=== PATIENT | female | born 1960 | race Caucasian/White ===

== ENCOUNTER 2018-03-02 12:19 | Inpatient (IN) | payer BC, OTHER ==
[~2018-03-02] VITALS: Ht 167.6 cm; Wt 77.1 kg
--- NOTE | 2018-03-02 13:00 | NUR ---
Pre-admission Note Received pt at intake. Pt is a 58 y/o F being [facility] Pt exhibits glossy red eyes, black and blue bruising that is clearing up around the eyes and nose, nose is swollen and has a scab/lesion right under L nostril - pt states this is all due to a fall from having a SZ unrelated to w/d last week tu. Pt has a flat affect, depressive mood, higher emotional amplitude, tearful at times when speaking, exhibiting feelings of remorse, presents agitation, anxiety, restlessness, and pt states she feels "tense, bothered and overwhelmed." Pt is the primary source of info, has a slow verbal response and low tone of voice. Pt is a poor historian, has difficulty thinking and concentrating. PMH of anxiety, depression, total hysterectomy, bladder repair surgery d/t complication from hysterectomy, GERD. Pt reports having sporadic seizures unrelated to ETOH withdrawal since in her 20's. Pt reports she had a seizure last week while cleaning in her home; states she cannot recall her memory before the seizure, son found her on the floor covered in blood from her nose. Pt states she has not been seen by the doctor in fear of judgement of her drinking. 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 Pt states, "I wanted attention and took some small red pills, I don't remember what but I took a bunch of them and cut my wrists. It was only superficially." PCP is Dr. Givens in [place]. Pt reports having been to multiple treatment centers, never have completed treatment, always leaving early within 5 days of admission. Denies smoking. Initial VS are BP: 131/85, HR: 96, RR: 16, O2sat: 96% Substance Use Hx: 1. ETOH - 96 oz (4 x 24 oz can) of beer daily x 6 month. Last used today 03/02/18, at 1030. Pt states, "I never stay sober but I have periods were I try to not drink and it would last typically last 1 to 2 days." FIrst used at 37 y/o after first divorce. Got involved with a bad bf that drank and progressed. First started becoming a problem in 1999. Longest sobriety is 60 days in 2013. Pt reports she used to drink 8-12 x 12 oz beer daily for 15- 20 cans of 12 oz beer years prior and 16+ prior for 10 years.
[2018-03-02] MEDS ORDERED: SOY1TABL2 PO (13:16)
[2018-03-02] MEDS ORDERED: PARO10TA86 PO (13:16)
[2018-03-02] MEDS ORDERED: CLOT15CR5 TP (13:16)
[2018-03-02] MEDS ORDERED: METRONIDAZOLE (13:16)
[2018-03-02] MEDS ORDERED: OMEP40CA37 PO (13:16)
[2018-03-02] MEDS ORDERED: NEOM28OI2 TP (13:16)
[2018-03-02] MEDS ORDERED: THIAMINE HCL 200 MG/2 ML VIAL IM ONE (13:45)
[2018-03-02] MEDS ORDERED: ONDANSETRON ODT 4 MG TAB.RAPDIS SL PRN (13:45)
[2018-03-02] MEDS ORDERED: MIRALAX 17 GM POWD.PACK PO PRN (13:45)
[2018-03-02] MEDS ORDERED: LORAZEPAM 1 MG TABLET PO PRN ×2 (13:45)
[2018-03-02] MEDS ORDERED: MAGNESIUM HYDROXIDE 30 ML LIQUID UDC PO PRN (13:45)
[2018-03-02] MEDS ORDERED: LORAZEPAM 2 MG/1 ML VIAL IM PRN (13:45)
[2018-03-02] MEDS ORDERED: MAG HYDROX/AL HYDROX/SIMETH 30 ML LIQUID UDC PO PRN (13:45)
[2018-03-02] MEDS ORDERED: LOPERAMIDE HCL 2 MG CAPSULE PO PRN ×2 (13:45)
[2018-03-02] MEDS: FOLIC ACID 1 MG TABLET PO SCH (14:04)
[2018-03-02] MEDS: MULTIVITAMINS,THERAPEUTIC TABLET PO SCH (14:04)
[2018-03-02 14:05] LABS: *URINE HCG, QUAL NEGATIVE (NEGATIVE)
[2018-03-02 14:31] LABS: BASOPHILS # (AUTO) 0.1 K/uL (0.0-8.0); BASOPHILS % (AUTO) 1.3 % (0.0-2.0); EOSINOPHILS # (AUTO) 0.2 K/uL (0.0-0.7); EOSINOPHILS % (AUTO) 2.9 % (0.0-7.0); HEMATOCRIT 39.1 % (31.2-41.9); HEMOGLOBIN 13.4 g/dL (10.9-14.3); LYMPHOCYTES # (AUTO) 1.7 K/uL (20.0-40.0); LYMPHOCYTES % (AUTO) 29.2 % (20.5-51.5); MEAN CORPUSCULAR HEMOGLOBIN 36.4 uug (24.7-32.8); MEAN CORPUSCULAR HGB CONC 34 g/dL (32.3-35.6); MONOCYTES # (AUTO) 0.8 K/uL (2.0-10.0); NEUTROPHILS # (AUTO) 3.1 K/uL (1.8-8.9); NEUTROPHILS % (AUTO) 52.6 % (38.5-71.5); PLATELET COUNT (AUTO) 120 K/uL (179-408); RED BLOOD CELL COUNT(AUTO) 3.69 MIL/uL (3.63-4.92)
[2018-03-02 14:44] LABS: BILIRUBIN,TOTAL 0.8 mg/dL (0.2-1.0); CREATININE 0.5 mg/dL (0.6-1.3); MAGNESIUM 1.6 mg/dL (1.8-2.4); POTASSIUM 4.4 mmol/L (3.5-5.1); TOTAL PROTEIN, SERUM 7.7 g/dL (6.4-8.2)
[2018-03-02 14:54] LABS: THYROID STIMULATING HORMONE 1.411 mIU/mL (0.358-3.740)
[2018-03-02 16:30] VITALS: BP 103/61
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
--- NOTE | 2018-03-02 19:40 | NUR ---
End Of Shift Pt has been laying in bed mostly throughout shift since being admitted. Pt states she feels anxious about what to anticipate and wants to know how long she needs to be here. CIWA or tapers have not been started or ordered. Pt ate 100% of meals. No prns given. Safety measures in place. Endorsement given to car shifter nurse.
[2018-03-02 20:00] VITALS: BP 103/58
--- NOTE | 2018-03-02 20:00 | NUR ---
Start of Shift Patient on bed, noted to be depressed, melancholic and isolative. Patient appears not motivated to communicate, answering mostly with yes and no and with no eye contact. Patient verbalized experiencing intermittent chills, feeling anxious, fatigue, easily agitated and with tremors noted. Patient noted to be flushed, disheveled and unkempt, with body odor. Encouraged patient to take a shower. Patient stated that she will take a shower tomorrow. Fall, universal, seizure and safety prec in place. Call light within reach. Latest CIWA=17. Will continue to monitor.
[2018-03-02] MEDS ORDERED: MAGNESIUM OXIDE 400 MG TABLET PO ONE ×3 (20:45→21:00)
[2018-03-02] MEDS ORDERED: MAGNESIUM OXIDE 400 MG TABLET ONE (21:35)
--- NOTE | 2018-03-02 21:38 | NUR ---
PRN Ativan Patient is tremulous, jittery and with tremors. Patient also c/o feeling anxious and with dark undereye circles. CIWA=17. Administered Ativan 2 mg PO PRN as ordered. Will reassess.
--- NOTE | 2018-03-02 22:45 | NUR ---
Ativan PRN reassess Patient appears less anxious, with tremors less prominent. Patient also is less tremulous, verbalized, "I feel a little better with the medication." CIWA=11.
[2018-03-03] VITALS: BP 108/67
--- NOTE | 2018-03-03 | NUR ---
CIWA 11 Patient presents with intermittent chills, tremors, anxiety and with intermittent nausea. Patient stated that she has mild sensitivity to light. Will continue to monitor.
[2018-03-03 04:00] VITALS: BP 112/65
--- NOTE | 2018-03-03 04:00 | NUR ---
CIWA 12 Patient with continuous intermittent chills, anxiety, tremors and verbalized being sensitive to light. With dizziness reported. Will continue monitor.
[2018-03-03 07:10] LABS: BILIRUBIN,DIRECT 0.4 mg/dL (0.0-0.2); BILIRUBIN,TOTAL 1.2 mg/dL (0.2-1.0); MAGNESIUM 1.6 mg/dL (1.8-2.4)
--- NOTE | 2018-03-03 07:16 | NUR ---
End of Shift Patient continues to be depressed, melancholic and isolative. Patient verbalized that she still experiences intermittent chills, feeling anxious, fatigue, easily agitated and with tremors noted. Patient noted to be flushed, disheveled and unkempt, with body odor. Patient stated that she will take a shower this morning. Fall, universal, seizure and safety prec in place. Call light within reach. Latest CIWA=12, slept for 7 hours. Endorsed to AM shift nurse for continuity of care.
--- NOTE | 2018-03-03 07:55 | NUR ---
Start Of Shift / CIWA 12 Pt is a 58 y/o F admitted yesterday 03/03/18 for medically supervised ETOH withdrawal. Pt is placed on a 5 day Ativan taper that will starting this morning. Received pt laying in bed w. a disheveled appearance, a depressive mood and a flat affect. Pt presents anxiety, gross tremors, nausea, alternating extremes of feeling cold and hot, sweating, fatigue, lethargy, agitation, easily irritable and restlessness. Encouraged pt to increase fluids as tolerated to facilitate in detox. Educated pt on s/s to report and pt verbalized understanding. Side rails upx2 and padded, bed is in low position, call light within reach. Safety measures in place. Will continue to monitor.
[2018-03-03 08:00] VITALS: BP 126/68
[2018-03-03 08:06] LABS: HEPATITIS B SURFACE AG Negative (Negative)
[2018-03-03] MEDS: LORAZEPAM 1 MG TABLET PO SCH ×4 (08:57→21:21)
[2018-03-03] MEDS: FOLIC ACID 1 MG TABLET PO SCH (08:58)
[2018-03-03] MEDS: PANTOPRAZOLE SODIUM 40 MG TABLET.DR PO SCH (08:58)
[2018-03-03] MEDS: MULTIVITAMINS,THERAPEUTIC TABLET PO SCH (08:58)
[2018-03-03] MEDS: THIAMINE HCL 100 MG TABLET PO SCH (08:58)
[2018-03-03] MEDS ORDERED: LORAZEPAM 1 MG TABLET ONE ×3 (09:00→16:29)
[2018-03-03] MEDS ORDERED: 5 DAY TAPER OF LORAZEPAM -SERENITY PROTOCOL PO PRN (09:00)
[2018-03-03] MEDS ORDERED: TUBERCULIN,PURIF.PROT.DERIV. 5 TU/0.1 ML TEST ID ONE (09:00)
[2018-03-03] MEDS ORDERED: Medication Not On Formulary EA (Omeprazole 40 MG) PO SCH (09:00)
[2018-03-03] MEDS ORDERED: PANTOPRAZOLE SODIUM 40 MG TABLET.DR PO ONE (09:01)
[2018-03-03] MEDS: PAROXETINE HCL 10 MG TABLET PO SCH (10:37)
--- NOTE | 2018-03-03 12:30 | NUR ---
CIWA 16 Pt is laying in bed sleeping intermittently and states that she is feeling very tired. Pt presents gross tremors, nausea, anxiety and agitation, alternating extremes of feeling cold and hot, sweating, fatigue, lethargy, easily irritable and restlessness. Ativan 2 mg will be administered. Safety measures in place.
[2018-03-03 12:32] VITALS: BP 136/81
[2018-03-03 12:43] LABS: *AMPHETAMINE, URINE NEGATIVE (NEGATIVE); *BARBITURATE, URINE NEGATIVE (NEGATIVE); *CANNABINOID, URINE NEGATIVE (NEGATIVE); *COCCAINE, URINE NEGATIVE (NEGATIVE); *OPIATE, URINE NEGATIVE (NEGATIVE); *PHENCYCLIDINE SCREEN,URINE NEGATIVE (NEGATIVE)
[2018-03-03] MEDS ORDERED: MAGNESIUM OXIDE 400 MG TABLET PO ONE (14:30)
--- NOTE | 2018-03-03 14:54 | NUR ---
Therapist prompted client to attend group therapy.
[2018-03-03] MEDS ORDERED: MAGNESIUM OXIDE 400 MG TABLET ONE (14:57)
--- NOTE | 2018-03-03 15:00 | NUR ---
Mag-Ox 400 mg po x1 given for Mg+ 1.6. Slo-mag will be started tomorrow.
--- NOTE | 2018-03-03 16:02 | NUR ---
CIWA 18 Pt has been isolative in room, speaks in a very low tone, soft voice, is hypoactive. Pt presents nausea, lethargy, fatigue, anxious, is grossly tremulous, agitated, restless, have sensitivity to the light. Ativan 2 mg po will be administered. Encouraged pt to verbalize feelings about situation and to increase fluids as tolerated. Safety measures in place.
[2018-03-03 16:30] VITALS: BP 148/95
--- NOTE | 2018-03-03 16:38 | NUR ---
STK-MEDs in eMAR documented as non-admin d/t pyxis communication error
--- NOTE | 2018-03-03 18:54 | NUR ---
START OF SHIFT NOTE: This report is on patient, 58 years old female, admitted yesterday for Alcohol withdrawal. The patient tolerated well with ordered 5 day Ativan taper, that started today. Withdrawal symptoms will be closely monitoring. Patient remains compliant with treatment, medications, and diet regimen. Patient is alert and oriented x4, cooperative, with stable gait, clear soft speech. Patient reports NKA, is on Full Code, Regular diet, Fall and Seizures precautions. Patient report history of seizures r/t withdrawal from alcohol, the most recent seizure was on 02/23/2018. Latest CIWA= 18 at 1600. Patient presented with moderate withdrawal symptoms such as anxiety, agitation, irritability, headache, mild nausea/w no vomiting, nervousness, moderate tremors, restlessness, and fatigue. No PRN medications was administered during day shift, per day shift nurse report. Patient was encouraged to fluids intake as tolerated, and to attend groups activities. Safe and calm environment provided. All needs met. Safety measures in place: Call light within reach, bed locked in lowest position, padded bed rails up bilaterally. Endorsed by day shift nurse. Report received. Will be monitoring closely.
--- NOTE | 2018-03-03 18:54 | NUR ---
End Of Shift Pt has been isolative in room, speaks in a very low tone and soft voice, is hypoactive. Pt has increasing amplitude of withdrawal symptom, gross tremors, anxiety, nausea, lethargy, fatigue, agitation, restlessness, sweating, feeling cold/hot sensations, have sensitivity to the light and decreased appetite. Last CIWA 18. No prns given. Mag-ox given and slow-mag will start tomorrow. Pt refused PPD test; states she gets a positive result w/ redness at site but CXR is neg. BP elevated; last bp: 148/95 HR: 74. Encouraged pt to verbalize feelings about situation and to increase fluids as tolerated. Safety measures in place.
[2018-03-03 20:00] VITALS: BP 122/74
--- NOTE | 2018-03-03 20:00 | NUR ---
CIWA ASSESSMENT CIWA=14 at 2000. The patient experienced moderate withdrawal symptoms such as anxiety, agitation, irritability, headache, nervousness, tremors, restlessness, and fatigue. Scheduled medications will be administrated as ordered. Encouraged to intake fluids as tolerated. Safe and calm environment provided. All needs met. Safety measures: Call light within reach, bed locked in lowest position, padded bed rails up x2. Will continue to monitor closely.
[2018-03-04] VITALS (8 sets, daily range): BP systolic 119–148; BP diastolic 49–91
--- NOTE | 2018-03-04 | NUR ---
CIWA ASSESSMENT CIWA=12 at 0000. The patient presented with anxiety, agitation, irritability, nervousness, sweating, flashed skin, clammy skin, tremors, restlessness, and fatigue. Encouraged to intake fluids as tolerated. Safe and calm environment provided. All needs met. Safety measures: Call light within reach, bed locked in lowest position, padded bed rails up x2. Will continue to monitor closely.
--- NOTE | 2018-03-04 04:00 | NUR ---
CIWA ASSESSMENT CIWA=10 at 0400. The patient appears sad and worried. Mood anxious and flat affect. The patient presented with following withdrawal symptoms such as anxiety, agitation, depression, irritability, nervousness, sweating, bilateral tremors, restlessness, and fatigue. Encouraged to intake fluids as tolerated. Safe and calm environment provided. All needs met. Safety measures: Call light within reach, bed locked in lowest position, padded bed rails up x2. Will continue to monitor closely.
[2018-03-04] MEDS ORDERED: PANTOPRAZOLE SODIUM 40 MG TABLET.DR PO ONE (06:18)
[2018-03-04] MEDS: PANTOPRAZOLE SODIUM 40 MG TABLET.DR PO SCH (06:20)
--- NOTE | 2018-03-04 07:21 | NUR ---
END OF SHIFT NOTE: Endorsed patient is alert and oriented x4, cooperative, with stable gait, clear soft speech, tolerated well with ordered 5 day Ativan taper, today is second day. Patient was noted with anxiety, agitation, nervousness, bilateral tremors, sweating, restlessness, and fatigue. CIWA=14 at 2000, CIWA=12 at 0000. Last CIWA= 12 at 0400. Withdrawal symptoms was closely monitored. No PRN medications was administered during my shift. The patient remains compliant with treatment plan, medications, and diet regime. Educated for non pharmacological method that can be used to help control pain. Encouraged to intake fluids as tolerated. Encouraged to attend group activities. Patient slept for 11 hours, intake 1,050 ml, output: voided x1, stool x1. Safe and calm environment provided. All needs met. Safety measures: Call light within reach, bed locked in lowest position, padded bed rails up x2. Endorsed to day shift nurse.
--- NOTE | 2018-03-04 07:30 | NUR ---
START OF SHIFT Endorse rcvd from ongoing nurse, client had an uneventful night, client slept 11 hrs. Last CIWA 12 @ 0400. Client is in bed, lying on her back, eyes closed, she sounds asleep, easy to arouse. RR 16, even, non-labored. Call light within reach. Will continue to monitor.
[2018-03-04] MEDS: THIAMINE HCL 100 MG TABLET PO SCH (08:47)
[2018-03-04] MEDS: FOLIC ACID 1 MG TABLET PO SCH (08:47)
[2018-03-04] MEDS: IBUPROFEN 600 MG TABLET PO PRN (08:47)
[2018-03-04] MEDS: MULTIVITAMINS,THERAPEUTIC TABLET PO SCH (08:47)
[2018-03-04] MEDS: PAROXETINE HCL 10 MG TABLET PO SCH (08:47)
[2018-03-04] MEDS: LORAZEPAM 1 MG TABLET PO SCH ×3 (08:47→20:54)
[2018-03-04] MEDS: MAGNESIUM CHLORIDE 64 MG TABLET.SA PO SCH (08:47)
--- NOTE | 2018-03-04 08:47 | NUR ---
CIWA 14 & Motrin 600mh PO for headache Client is in bed, she appears disheveled, strong body odor, and dark circles under eyes. She presents with depressed, anxious mood, flat affect tremors, clammy skin, avoidant gaze. Client reports headache 6/10 pain level, nausea, stomach cramps, irritability, anxiety, and fatigue. Client states, 'I don't feel like getting up, I don't feel well at all." Schedule Ativan 2mg PO + above PRN medication administered. Encourage client to increase PO fluid to facilitate detox. Encourage client to attend group therapy to learn skills to maintain sober. Call light within reach.
--- NOTE | 2018-03-04 09:47 | NUR ---
Reassess Motrin 600mg, client reports slight relief from headache 3/10, but tolerable.
--- NOTE | 2018-03-04 10:41 | NUR ---
Therapist prompted client to attend all group therapy sessions.
--- NOTE | 2018-03-04 12:00 | NUR ---
CIWA 13 Client presents with anxiety, agitation, chills. Client also reports tremors, sweats, nausea, stomach cramps, decreased appetite, and fatigue. Encourage client to verbalize feelings that makes her feel anxious. Call light within reach.
[2018-03-04] MEDS ORDERED: MAGNESIUM OXIDE 400 MG TABLET PO ONE (14:30)
--- NOTE | 2018-03-04 16:39 | NUR ---
CIWA 13 Client is in room, sitting in a couch, she appears with flushed face, moist skin, tremors, anxious, depressed mood, flat affect and difficulty concentrating. Client reports having no desire to leave her room, feeling imitable an anxious, fatigued, nausea, stomach cramps, chills, sweats, and poor appetite. Client refuses PRN medications to manage withdrawal symptoms. Will continue to monitor. Call light within reach.
--- NOTE | 2018-03-04 19:13 | NUR ---
START OF SHIFT NOTE Report received for patient admitted for Alcohol withdrawal, continues ordered 5 day Ativan taper, which tolerated well. Withdrawal symptoms will be closely monitoring. Patient is presented in her room alert and oriented x4: place, time person, and situation. The most recent CIWA=13 at 1634. Throughout day shift she was c/o anxiety, agitation, nervousness, mild nausea, w/o vomiting, stomach cramps, bilateral tremors, flashed face, clammy skin, barely sweating, restlessness, and fatigue. PRN Motrin 600 mg PO was administered at 0847 for headache, and was effective, per day shift nurse report. Patient remains compliant with treatment, medications, and diet regime. Patient denies to attend groups activities, and was encouraged to increased her activities. Encouraged to fluids intake as tolerated. Safe and calm environment provided. All needs met. Safety measures in place: Call light within reach, bed is locked in lowest position, padded bed rails up x2. Patient was endorsed by outgoing day shift nurse. Will continue to monitor closely.
--- NOTE | 2018-03-04 19:13 | NUR ---
END OF SHIFT Endorse client to incoming nurse, client is in group therapy, a/o x 4. Client continues to present with anxiety, agitation, gross tremors, flushed face sweats, difficulty concentrating, nausea, abdominal cramps, restless legs, feverish, decreased appetite, headache, sense of panic, and fatigue. PRN Motrin 600mg PO for NICHOLAS. Last CIWA 13 @ 1600. Second of 5 day Ativan taper. Adequate PO fluid intake 2800mL, void x 4, stool x 1. Consumes 75% of meals. Call light within reach.
--- NOTE | 2018-03-04 20:00 | NUR ---
CIWA ASSESSMENT CIWA=14 at 2000. The patient appears worried, anxious mood, flat affect. She experiences moderate withdrawal symptoms such as anxiety, agitation, irritability, nervousness, nausea, stomach cramps, nervousness, tremors, restlessness, and fatigue. Scheduled medications will be administrated as ordered. Encouraged to intake fluids as tolerated. Safe and calm environment provided. All needs met. Safety measures: Call light within reach, bed locked in lowest position, padded bed rails up x2. Will continue to monitor closely.
[2018-03-04] MEDS: diphenhydrAMINE 50 MG CAPSULE PO PRN (20:56)
--- NOTE | 2018-03-04 20:56 | NUR ---
PRN BENADRYL 50 MG 1TABLET PO ADMINISTRATION PRN Benadryl 50 mg 1 tablet was administered for insomnia at 2055. Patient tolerated well. Safe and calm environment provided. All needs met. Safety measures in place: Call light within reach, bed locked in lowest position, padded bed rails up bilaterally. Will continue monitoring closely.
--- NOTE | 2018-03-04 21:25 | NUR ---
1:1 status Patient with episode of dizziness, nausea and verbalized "I'm feeling wobbly, feels like I'm floating." Patient stated that she lost he balance and hit her head on the side of the bed. Dr. Pandey notified and her ordered to place patient on 1:1. BP dxgymri=555/91. Primary Nurse is made aware. PRN medications will be administered.
[2018-03-04] MEDS: CLONIDINE HCL 0.1 MG TABLET PO PRN (21:35)
--- NOTE | 2018-03-04 21:35 | NUR ---
PRN CLONIDINE 0.1 MG PO ADMINISTRATION PRN Clonidine 0.1 mg PO administered for BP 148/91. Patient tolerated well. 1:1 sitter at bedside with patient for safety. Safe and calm environment provided. All needs met. Safety measures in place: Call light within reach, bed is locked in lowest position, padded bed rails up x2. Will continue to monitor closely.
--- NOTE | 2018-03-04 21:42 | NUR ---
PRN ZOFRAN (ONDANSETRON 4 MG TAB.RAPDIS) 4 MG 1 TAB.RAPDIS SL ADMINISTRATION PRN Zofran 4 mg SL administered for nausea w/o vomiting. Patient tolerated well. 1:1 sitter at bedside with patient for safety. Safe and calm environment provided. All needs met. Safety measures in place: Call light within reach, bed is locked in lowest position, padded bed rails up x2. Will continue to monitor closely.
--- NOTE | 2018-03-04 21:56 | NUR ---
PRN RE-ASSESSMENT Benadryl 50 mg PO administered for insomnia at 2055 was ineffective. PRN Medications will be administered as ordered. 1:1 sitter at bedside with patient for safety. Safe and calm environment provided. All needs met. Safety measures in place: Call light within reach, bed is locked in lowest position, padded bed rails up x2. Will continue to monitor closely.
--- NOTE | 2018-03-04 22:35 | NUR ---
PRN RE-ASSESSMENT PRN Clonidine 0.1 mg PO administered for BP 148/91 was effective: BP decreased to 145/88. 1:1 sitter at bedside with patient for safety. Safe and calm environment provided. All needs met. Safety measures in place: Call light within reach, bed is locked in lowest position, padded bed rails up x2. Will continue to monitor closely.
--- NOTE | 2018-03-04 22:42 | NUR ---
PRN RE-ASSESSMENT Patient reports,"My nausea gone, but I am feeling anxious". PRN Vistaril PO will be administered as ordered. 1:1 sitter for safety at bedside, as ordered. All needs met. Safety measures in place: Call light within reach, bed is locked in lowest position, padded bed rails up x2. Will continue to monitor closely.
[2018-03-04] MEDS: HYDROXYZINE PAMOATE 25 MG CAPSULE PO PRN (22:54)
--- NOTE | 2018-03-04 22:54 | NUR ---
PRN VISTARIL 25 MG 1 CAPSULE PO ADMINISTRATION PRN Vistaril 25 mg 1 capsule PO administered for anxiety at 2254. Patient tolerated well. 1:1 sitter at bedside with patient for safety, as ordered. Safe and calm environment provided. All needs met. Safety measures in place: Call light within reach, bed is locked in lowest position, padded bed rails up x2. Will continue to monitor closely.
--- NOTE | 2018-03-04 23:54 | NUR ---
PRN RE-ASSESSMENT PRN Vistaril 25 mg PO administered for anxiety at 2254 was effective. Patient is sleeping. Respirations are even and unlabored. RR: 14. Safe and calm environment provided. All needs met. Safety measures in place: Call light within reach, bed locked in lowest position, padded bed rails up bilaterally. Will continue monitoring closely.
--- NOTE | 2018-03-05 | NUR ---
CIWA DEFERRED Patient is sleeping with snoring. RR:14. Respirations are unlabored and even. CIWA deferred, and will be done when patient will be awake. 1:1 sitter at bedside with patient for safety. Safe and calm environment provided. All needs met. Safety measures in place: Call light within reach, bed is locked in lowest position, padded bed rails up x2. Will continue to monitor closely.
[2018-03-05 01:18] VITALS: BP 134/79
--- NOTE | 2018-03-05 01:18 | NUR ---
CIWA ASSESSMENT CIWA=12 at 0118. The patient appears worried, anxious mood, depressive affect. She c/o headache"5/10', anxiety, agitation, irritability, nervousness, tremors, restlessness, and fatigue. PRN Motrin PO will be administrated as ordered. Encouraged to intake fluids as tolerated. Safe and calm environment provided. 1:1 sitter at bedside for safety. All needs met. Safety measures: Call light within reach, bed locked in lowest position, padded bed rails up x2. Will continue to monitor closely.
[2018-03-05] MEDS: IBUPROFEN 600 MG TABLET PO PRN ×2 (01:21→09:02)
--- NOTE | 2018-03-05 01:21 | NUR ---
PRN MOTRIN 600 MG PO ADMINISTRATION Patient c/o headache "5" and asked aid. PRN Motrin 600 mg PO administered for headache at 0121 as ordered. Patient tolerated well. Safe and calm environment provided. 1:1 sitter at bedside for safety. All needs met. Safety measures in place: Call light within reach, bed locked in lowest position, padded bed rails up bilaterally. Will continue to monitor closely.
--- NOTE | 2018-03-05 02:21 | NUR ---
PRN RE-ASSESSMENT PRN Motrin 600 mg PO administered for headache at 0121 was effective. Patient is sleeping. RR: 15. Respirations are even and unlabored. Safe and calm environment provided. 1:1 sitter at bedside for safety. All needs met. Safety measures in place: Call light within reach, bed locked in lowest position, padded bed rails up bilaterally. Will continue to monitor closely.
[2018-03-05 04:00] VITALS: BP 104/77
--- NOTE | 2018-03-05 04:00 | NUR ---
CIWA ASSESSMENT CIWA=12 at 0400 Patient noted anxious, agitated, with flashed face, clammy skin, sweating, mild bilateral tremors, and restlessness. Safe and calm environment provided. 1:1 sitter at bedside for safety. All needs met. Safety measures: Call light within reach, bed locked in lowest position, padded bed rails up x2. Will continue to monitor closely.
[2018-03-05] MEDS: PANTOPRAZOLE SODIUM 40 MG TABLET.DR PO SCH (06:57)
--- NOTE | 2018-03-05 07:21 | NUR ---
START OF SHIFT NOTE Patient is a 58 year old female, presented for alcohol withdrawal, continues ordered 5 day Ativan taper. Today is third day. She is tolerated well. CIWA=14 at 1999, CIWA=12 at 0118. The most recent CIWA=12 at 0400: Patient experienced anxiety, agitation, episode of dizziness, lightheadedness, headache, nervousness, nausea, w/o vomiting, stomach cramps, bilateral tremors, flashed face, clammy skin, barely sweating, restlessness, and fatigue. Doctor Dannie aware. Order for 1:1 sitter placed. Benadryl 50 mg PO administered for insomnia at 2055 was ineffective. PRN Clonidine 0.1 mg PO administered for BP 148/91 at 2134, PRN Zofran 4 mg SL administered for nausea w/o vomiting at 2141, PRN Vistaril 25 mg PO administered for anxiety at 2253, PRN Motrin 600 mg PO administered for headache at 120, and were effective. Patient remains compliant with medications. Patient slept for 7 hours, intake 1,355ml, output: voided x3. Encouraged to fluids intake as tolerated. Encouraged to attend groups activities. Safe and calm environment provided. All needs met. Safety measures in place: Call light within reach, bed locked in lowest position, padded bed rails up bilaterally. Patient endorsed to day shift nurse.
--- NOTE | 2018-03-05 07:30 | NUR ---
START OF SHIFT Rcvd endorse from ongoing nurse, client is in room, she is lying on her back, eyes, closed, dark [place] under eyes and a scab on L upper lip noted, RR 16, even, non-labored, easy to arouse. Client is on a 1:1 sitter promoting safety. PRN Clonidine 0.1mg PO, Vistaril 25 mg PO for anxiety, Motrin 600mg PO for NICHOLAS & Benadryl 50mg PO for insomnia, client has been sleeping for 7 hrs. Third of 5 day Ativan taper. Last CIWA 12 @ 0400. Seizure precautions in place. Bed in lowest/locked position, side rails x 2 up/padded. Call light within reach.
[2018-03-05 08:54] VITALS: BP 127/78
[2018-03-05] MEDS: PAROXETINE HCL 10 MG TABLET PO SCH (09:02)
[2018-03-05] MEDS: MULTIVITAMINS,THERAPEUTIC TABLET PO SCH (09:02)
[2018-03-05] MEDS: MAGNESIUM CHLORIDE 64 MG TABLET.SA PO SCH (09:02)
[2018-03-05] MEDS: LORAZEPAM 1 MG TABLET PO SCH ×4 (09:02→20:51)
[2018-03-05] MEDS: FOLIC ACID 1 MG TABLET PO SCH (09:02)
[2018-03-05] MEDS: THIAMINE HCL 100 MG TABLET PO SCH (09:02)
--- NOTE | 2018-03-05 09:02 | NUR ---
CIWA 14 & PRN Motrin 600mg PO for NICHOLAS 11/29. Client presents with flushed face, flat affect, avoidant gaze, tremors, clammy skin, and difficulty concentrating. Client reports tremors, restlessness, sweating, anxiety, depression, agitation, nervousness, fatigue, generalized pain, abd cramping and headache 11/29. Schedule Ativan 1mg PO and above PRN administered. Encourage client to increase PO fluid intake as tolerated to facilitate detox. Sitter at bedside. Call light within reach.
--- NOTE | 2018-03-05 09:40 | NUR ---
Endorse client to RN for continuity of care, discuss all relevant information. RN to reassess PRN medications.
--- NOTE | 2018-03-05 09:41 | NUR ---
ENDORSEMENT Pt endorsed to me. All information received.
[2018-03-05 12:00] VITALS: BP 130/68
--- NOTE | 2018-03-05 12:00 | NUR ---
CIWA ASSESSMENT ciwa=14. Anxious and restless. Not able to lay still, fidgety. Bilateral hand tremors noted. Perspiration on forehead noted. Pt states feels weak and generalized discomfort. Easily irritable/ agitated.
--- NOTE | 2018-03-05 15:34 | NUR ---
LAB Mg=1.6. aware and stated he would put in new order shortly.
[2018-03-05 16:00] VITALS: BP 125/87
--- NOTE | 2018-03-05 16:00 | NUR ---
CIWA ASSESSMENT ciwa=11. Easily irritable. Complaints of intermittent perspiration. Bilateral hand tremors noted. Anxious and restless. Fidgety and not able to lay still.
[2018-03-05] MEDS ORDERED: MAGNESIUM CHLORIDE 64 MG TABLET.SA PO ONE (18:15)
--- NOTE | 2018-03-05 18:44 | NUR ---
END OF SHIFT Pt 58 y/o female admitted for benzo and opiate withdrawal. Pt alert and oriented to name, place, and time. Perr[place]. Skin warm and moist to touch. Respirations even and unlabored. Appears disheveled. Hair uncombed. Clothes scattered throughout the room. Encouraged to maintain hygiene. Restless. Fidgety, not able to lay still on bed. Bilateral hand tremors. Fatigued. 1:1 sitter for safety. Unsteady gait. Isolative to room. Did not attend group activity. Medication compliant. Last ciwa=11 Pt is on 5 day ativan taper and is on 3. Bed on lowest position with side rails x 2 up for safety. Call light within reach.
--- NOTE | 2018-03-05 18:54 | NUR ---
START OF SHIFT NOTE: Patient received from outgoing day shift nurse. Patient tolerated well with 5 day Ativan taper (today is third day), ordered for Benzodiazepines and Alcohol withdrawal. Patient is 1:1 for safety, as ordered. The last CIWA= 7at 1600. Per day shift nurse report, patient noted during day shift with s anxiety, agitation, irritability, nervousness, barely sweating, headache, mild nausea, tremors, restlessness, fatigue. Patient was encouraged to fluids intake as tolerated, and to attend groups activities. PRN Motrin 600 mg PO administered for headache at 0902 was effective. Patient was encouraged to fluids intake as tolerated, and to attend groups activities. Safe and calm environment provided. All needs met. Safety measures in place: Call light within reach, bed locked in lowest position, padded bed rails up bilaterally. Patient endorsed by outgoing day shift nurse. Report received. Will be monitoring closely.
[2018-03-05 20:00] VITALS: BP 96/55
--- NOTE | 2018-03-05 20:00 | NUR ---
CIWA ASSESSMENT CIWA=10 at 2000. Patient noted with anxiety, agitation, nervousness, sweating, bilateral tremors that can be felt, not observe, and restlessness. Scheduled medications will be administered ,as ordered. Safe and calm environment provided. 1:1 sitter at bedside for safety. All needs met. Safety measures in place: Call light within reach, bed locked in lowest position, padded bed rails up x2. Will continue to monitor closely.
[2018-03-05] MEDS: diphenhydrAMINE 50 MG CAPSULE PO PRN (20:51)
--- NOTE | 2018-03-05 20:51 | NUR ---
PRN BENADRYL 50 MG 1TABLET PO ADMINISTRATION PRN Benadryl 50 mg 1 tablet was administered for insomnia at 2050. Patient tolerated well. 1:1 sitter at bedside with patient for safety. Safe and calm environment provided. All needs met. Safety measures in place: Call light within reach, bed is locked in lowest position, padded bed rails up x2. Will continue to monitor closely.
[2018-03-06] VITALS: BP 118/80
--- NOTE | 2018-03-06 | NUR ---
CIWA ASSESSMENT Patient appears anxious, agitated, with flashed face, clammy skin, sweating, bilateral tremors, and restlessness. CIWA=9 at 0000. Safe and calm environment provided. 1:1 sitter at bedside for safety. All needs met. Safety measures: Call light within reach, bed locked in lowest position, padded bed rails up x2. Will continue to monitor closely.
[2018-03-06 04:00] VITALS: BP 123/80
--- NOTE | 2018-03-06 04:00 | NUR ---
CIWA=9 Patient presented with anxiety, agitation, nervousness, tremors, that can be felt, not observe, sweating, flashed face, and clammy skin, fatigue, and restlessness. Encouraged to intake fluids, as tolerated. 1:1 sitter at bedside for safety. All needs met. Safe and calm environment provide. Safety measures in place. Safety measures in place: Call light within reach, bed locked in lowest position, padded bed rails up bilaterally. Will continue to monitor closely.
[2018-03-06] MEDS: PANTOPRAZOLE SODIUM 40 MG TABLET.DR PO SCH (07:06)
--- NOTE | 2018-03-06 07:21 | NUR ---
END OF SHIFT NOTE: Patient is a 58 year female admitted for alcohol withdrawal, continues 5 day Ativan taper, which tolerated well. Today is day 4. CIWA=10 at 2000, CIWA=9 at 0000. The most recent CIWA=9. Patient presented with anxiety, agitation, nervousness, sweating, bilateral tremors that can be felt, not observe, and restlessness. Patient was encouraged to fluids intake as tolerated. PRN Benadryl 50 mg 1 tablet was administered for insomnia at 2050, and was effective. Patient remains compliant with treatment, medications, and diet regimen. Patient slept for 9 hours, intake 700 ml, output: voided x3. All needs met. Safe and calm environment provide. 1:1 sitter at bedside for safety, as ordered. Safety measures in place: Call light within reach, bed locked in lowest position, padded bed rails up bilaterally. Patient endorsed to day shift nurse.
--- NOTE | 2018-03-06 07:30 | NUR ---
START OF SHIFT Pt 58 y/ female admitted for etoh withdrawal. Pt received in room watching television. 1:1 sitter for safety. Alert and oriented to name, place, and time. [place]. Skin warm and moist to touch. Respirations even and unlabored. Appears disheveled. Hair uncombed. Clothes scattered throughout the room. Encouraged to maintain hygiene. Restless. Fidgety. Not able to lay still. Fatigued. Bilateral hand tremors noted. It was reported that pt slept for 9 hours last night. Last cwia=9 @ 0000. Pt is on a 5 day ativan taper and is on day 5. Bed on lowest position with side rails x2 up for safety. Call light within reach.
[2018-03-06 08:00] VITALS: BP 119/72
--- NOTE | 2018-03-06 08:00 | NUR ---
CIWA ASSESSMENT ciwa=10. Bilateral hand tremors noted. Intermittent perspiration. Fatigued. Restless. Pressured speech.
[2018-03-06] MEDS: LORAZEPAM 1 MG TABLET PO SCH ×3 (08:50→20:29)
[2018-03-06] MEDS: MAGNESIUM CHLORIDE 64 MG TABLET.SA PO SCH ×2 (08:50→16:04)
[2018-03-06] MEDS: PAROXETINE HCL 10 MG TABLET PO SCH (08:50)
[2018-03-06] MEDS: THIAMINE HCL 100 MG TABLET PO SCH (08:50)
[2018-03-06] MEDS: FOLIC ACID 1 MG TABLET PO SCH (08:50)
[2018-03-06] MEDS: MULTIVITAMINS,THERAPEUTIC TABLET PO SCH (08:50)
[2018-03-06 12:00] VITALS: BP 105/74
--- NOTE | 2018-03-06 12:00 | NUR ---
CIWA ASSESSMENT ciwa=10. Anxious and restless. Fidgety. Pressured speech noted. Not able to lay still. Bilateral hand tremors noted.
[2018-03-06 16:00] VITALS: BP 118/75
--- NOTE | 2018-03-06 16:00 | NUR ---
CIWA ASSESSMENT ciwa=10. Bilateral hand tremors noted. Fatigued. Anxious and restless. Fidgety. Pressured speech noted. Not able to lay still.
--- NOTE | 2018-03-06 18:53 | NUR ---
END OF SHIFT Pt 58 y/o female admitted for benzo and opiate withdrawal. 1:1 sitter for safety. Pt alert and oriented to name, place, and time. [place]. Skin warm and moist to touch. Respirations even and unlabored. Appears disheveled. Hair uncombed. Clothes scattered throughout the room. Encouraged to maintain hygiene. Low motivation for self care. Restless. Fidgety. Bilateral hand tremors. Fatigued. Unsteady gait. Isolative to room. Did not attend group activity. Medication compliant. Last ciwa=10. Pt is on a 5 day ativan taper and is on 4. Bed on lowest position with side rails x 2 up for safety. Call light within reach.
--- NOTE | 2018-03-06 19:25 | NUR ---
Start Of Shift Patient is a 58 yr old female who was admitted to [facility] on 03/02/18 for a medically supervised withdrawal from ETOH ( Beer), she has been placed on a 5 day Ativan taper and this is day 4. No PRN medication was requested or required on day shift. She continues on a 1:1 for safety and unsteady gait, sitter is at bedside. Currently she is reading in bed and voices no concerns. her mood appears depressed and her affect is flat. Continue to follow MD plan of care and offer support and encouragement.
[2018-03-06 20:00] VITALS: BP 107/62
[2018-03-06] MEDS: diphenhydrAMINE 50 MG CAPSULE PO PRN (20:28)
--- NOTE | 2018-03-06 20:35 | NUR ---
PRN Benadryl 50mg PO given per request for sleep, will reassess
--- NOTE | 2018-03-06 21:35 | NUR ---
PRN Reassess Patient is lying in bed with eyes closed, Benadryl effective
--- NOTE | 2018-03-07 | NUR ---
CIWA/VITALS Vitals refused per patient request to sleep through the night CIWA deferred due to patient asleep
[2018-03-07] MEDS: HYDROXYZINE PAMOATE 25 MG CAPSULE PO PRN (00:56)
[2018-03-07] MEDS: CLONIDINE HCL 0.1 MG TABLET PO PRN (00:56)
--- NOTE | 2018-03-07 01:00 | NUR ---
CIWA 12 Patient presents with increased anxiety, restlessness, inability to stay asleep, vivid dreams and difficulty thinking clearly. Vistaril 25mg PO given for anxiety Clonidine 0.1mg PO given for increased BP of 134/93 and for anxiety
--- NOTE | 2018-03-07 01:00 | NUR ---
PRN PRN Clonidine 0.1mg PO and Vistaril 25mg PO given for increased anxiety and inability to fall back asleep
[2018-03-07 01:02] VITALS: BP 134/93
--- NOTE | 2018-03-07 02:00 | NUR ---
PRN Reassess Patient is asleep in bed, breathing even and unlabored , sitter at bedside
--- NOTE | 2018-03-07 04:00 | NUR ---
CIWA/ VITALS Patient refused vitals due to requesting to sleep, CIWA deferred
[2018-03-07] MEDS: PANTOPRAZOLE SODIUM 40 MG TABLET.DR PO SCH (06:45)
--- NOTE | 2018-03-07 06:54 | NUR ---
End of Shift: Patient is a 58 yr old female who was admitted to [facility] on 03/02/18 for a medically supervised withdrawal from ETOH ( Beer), she has been placed on a 5 day Ativan taper and this is day 5. PRN medication given on this shift: benadryl, Clonidine and Vistaril. She continues on a 1:1 for safety and unsteady gait, sitter is at bedside. Her mood appears depressed and her affect is flat, her withdrawal symptoms present as increased anxiety, irritability, bilateral fine hand tremors and decreased appetite. She had a fluid intake of 1900ml, 5 voids and 0 BM, she slept for 6 hours and last CIWA was 12 @ 0100. Continue to follow MD plan of care and offer support and encouragement. Endorsed to day shift nurse
--- NOTE | 2018-03-07 07:58 | NUR ---
START OF SHIFT NOTE Received report from night nurse 58 year old female admitted for ETOH withdrawal and continues on 5 days Ativan taper tolerating well. Per endorsement patient received PRN Benadryl, Vistaril, Clonidine, slept for 6 hours and last CIWA-12, patient continues on 1:1 for safety. Received patient alert awake oriented x4, presented with anxiety, agitation restless, fatigue, bilateral hand tremors noted. Patient due for schedule medications. Breathing normal no SOB noted. Respiration even non labored. Skin intact warm and dry to touch. All safety measures in place call light within reach. Will cont to monitor.
[2018-03-07 08:00] VITALS: BP 114/76
[2018-03-07] MEDS: MULTIVITAMINS,THERAPEUTIC TABLET PO SCH (08:21)
[2018-03-07] MEDS: THIAMINE HCL 100 MG TABLET PO SCH (08:21)
[2018-03-07] MEDS: FOLIC ACID 1 MG TABLET PO SCH (08:21)
[2018-03-07] MEDS: LORAZEPAM 1 MG TABLET PO SCH ×2 (08:21→20:27)
--- NOTE | 2018-03-07 08:21 | NUR ---
CIWA ASSESSMENT CIWA-14, patient presented with anxiety, agitation, restless, fatigue, light headed, sweats, complains of auditory hallucinations " I am hearing someone is talking to me". Patient was given schedule medications.
[2018-03-07] MEDS: MAGNESIUM CHLORIDE 64 MG TABLET.SA PO SCH (08:22)
[2018-03-07] MEDS: PAROXETINE HCL 10 MG TABLET PO SCH (08:22)
[2018-03-07 09:52] LABS: EOSINOPHILS # (AUTO) 0.2 K/uL (0.0-0.7); EOSINOPHILS % (AUTO) 5.5 % (0.0-7.0); HEMATOCRIT 39.5 % (31.2-41.9); HEMOGLOBIN 13.4 g/dL (10.9-14.3); LYMPHOCYTES # (AUTO) 1.1 K/uL (20.0-40.0); LYMPHOCYTES % (AUTO) 26.7 % (20.5-51.5); MEAN CORPUSCULAR HEMOGLOBIN 36.2 uug (24.7-32.8); MEAN CORPUSCULAR HGB CONC 34 g/dL (32.3-35.6); MEAN CORPUSCULAR VOLUME 106.8 fL (75.5-95.3); MONOCYTES # (AUTO) 0.7 K/uL (2.0-10.0); MONOCYTES % (AUTO) 17.4 % (0.0-11.0); NEUTROPHILS % (AUTO) 49.4 % (38.5-71.5); PLATELET COUNT (AUTO) 92 K/uL (179-408); WHITE BLOOD COUNT (AUTO) 4.1 K/uL (3.8-11.8)
[2018-03-07 10:00] LABS: BILIRUBIN,DIRECT 0.3 mg/dL (0.0-0.2); BILIRUBIN,TOTAL 0.9 mg/dL (0.2-1.0); MAGNESIUM 1.4 mg/dL (1.8-2.4); TOTAL PROTEIN, SERUM 6.8 g/dL (6.4-8.2)
[2018-03-07 10:08] LABS: EOSINOPHILS % (MANUAL) 5 % (0-8); MONOCYTES % (MANUAL) 15 % (2-10)
[2018-03-07 10:09] LABS: LYMPHOCYTES % (MANUAL) 27 % (20-40); NEUTROPHILS % (MANUAL) 53 % (42-75)
[2018-03-07 12:00] VITALS: BP 109/69
--- NOTE | 2018-03-07 12:00 | NUR ---
CIWA ASSESSMENT CIWA-12, patient continues to exhibits s/s of withdrawal such as sweats, anxiety, agitation, restless, fatigue, per patient light headed and auditory hallucinations subsided.
[2018-03-07] MEDS ORDERED: MAGNESIUM OXIDE 400 MG TABLET PO ONE (13:45)
[2018-03-07 16:00] VITALS: BP 110/66
--- NOTE | 2018-03-07 16:00 | NUR ---
CIWA ASSESSMENT CIWA-10, patient continues to exhibits s/s of withdrawal such as sweats, anxiety, agitation, restless, fatigue, anhedonia, dysphoria. Encourage patient to use non pharmacological intervention, patient continues on 1:1 for safety. All safety measures in place.
--- NOTE | 2018-03-07 19:15 | NUR ---
END OF SHIFT NOTE Gave report to night nurse, patient continues with Ativan taper tolerating well. Patient continues on 1:1 for safety. Patient presented with anxiety, restless, agitation, fatigue, ringing in the ears but no auditory hallucinations. MD notified. During shift patient did not receive any PRN'S. Patient was seen by MD with new order for mag-ox 800mg for low magnesium level patient tolerated well. Patient rested in her room most of the shift. Patient consumed 100% of her meals. All safety measures in place. patient endorse to night nurse in stable condition.
--- NOTE | 2018-03-07 19:20 | NUR ---
Start Of Shift Patient is a 58 yr old female who was admitted to [facility] on 03/02/18 for a medically supervised withdrawal from ETOH ( Beer), she has been placed on a 5 day Ativan taper and this is day 5. No PRN medication was requested or required on day shift. She continues on a 1:1 for safety and unsteady gait, sitter is at bedside. Currently she is lying in bed awake and voices no concerns. her mood appears depressed and her affect is flat. Her last CIWA was 10 @ 1600. Continue to follow MD plan of care and offer support and encouragement.
[2018-03-07 20:00] VITALS: BP 102/64
[2018-03-07] MEDS: diphenhydrAMINE 50 MG CAPSULE PO PRN (20:27)
--- NOTE | 2018-03-07 20:30 | NUR ---
PRN Benadryl 50mg PO given per request for sleep, will continue to monitor, 1:1 sitter at bedside for safety.
--- NOTE | 2018-03-07 20:30 | NUR ---
CIWA 11 Patient's withdrawal symptoms presents as anhedonia, lethargy, gross bilateral hand tremors and increased anxiety and irritability. Schedule Ativan 1mg PO given and Benadryl 50mg PO for sleep aid.
--- NOTE | 2018-03-07 21:30 | NUR ---
PRN Reassess Patient is asleep in bed, eyes closed, breathing even and unlabored, sitter at bedside
--- NOTE | 2018-03-08 | NUR ---
CIWA CIWA deferred due to sleep. Vitals refused, patient does not want to be woken up through the night. Breathing even, RR 14, sitter at bedside
--- NOTE | 2018-03-08 04:00 | NUR ---
CIWA CIWA deferred due to sleep. Vitals refused, patient does not want to be woken up through the night. Breathing even, RR 14, sitter at bedside
[2018-03-08] MEDS: PANTOPRAZOLE SODIUM 40 MG TABLET.DR PO SCH (06:38)
--- NOTE | 2018-03-08 06:43 | NUR ---
End of Shift: Patient is a 58 yr old female who was admitted to [facility] on 03/02/18 for a medically supervised withdrawal from ETOH ( Beer), she has been placed on a 5 day Ativan taper and this is day 5. PRN medication given on this shift: Benadryl. She continues on a 1:1 for safety and unsteady gait, sitter is at bedside. Her mood appears depressed and her affect is flat, her withdrawal symptoms present as increased anxiety, irritability, bilateral fine hand tremors and decreased appetite. She had a fluid intake of 1250ml, 5 voids and 0 BM, she slept for 7 hours and last CIWA was 11 @ 2000. Continue to follow MD plan of care and offer support and encouragement. Endorsed to day shift nurse.
--- NOTE | 2018-03-08 07:58 | NUR ---
START OF SHIFT NOTE Received report from night nurse 58 year old female admitted for ETOH withdrawal and continues on 5 days Ativan taper tolerating well. Per endorsement patient received PRN Benadryl, slept for 7 hours and last CIWA-11, patient continues on 1:1 for safety. Patient is currently sleeping responsive to verbal and tactile stimuli. Breathing normal no SOB noted. Respiration even non labored. Skin intact warm and dry to touch. All safety measures in place call light within reach. Will cont to monitor.
[2018-03-08 08:00] VITALS: BP 109/70
--- NOTE | 2018-03-08 08:00 | NUR ---
CIWA ASSESSMENT CIWA score -13, patient presented with anxiety, agitation, restless, fatigue, sweats. Patient was given schedule medications.
[2018-03-08] MEDS ORDERED: IBUPROFEN 600 MG TABLET PO PRN (08:15)
[2018-03-08] MEDS: FOLIC ACID 1 MG TABLET PO SCH (08:22)
[2018-03-08] MEDS: MULTIVITAMINS,THERAPEUTIC TABLET PO SCH (08:22)
[2018-03-08] MEDS: PAROXETINE HCL 10 MG TABLET PO SCH (08:22)
[2018-03-08] MEDS: THIAMINE HCL 100 MG TABLET PO SCH (08:22)
--- NOTE | 2018-03-08 10:14 | NUR ---
Therapist prompted client to attend all group therapy sessions and client stated that she is planning on attending today's afternoon group.
[2018-03-08] MEDS ORDERED: MAGNESIUM OXIDE 400 MG TABLET PO ONE (11:30)
[2018-03-08 12:00] VITALS: BP 113/68
--- NOTE | 2018-03-08 12:00 | NUR ---
CIWA ASSESSMENT CIWA-11, patient noted attending groups activities, Patient reported feeling less anxious, agitated, restless, fatigue.
[2018-03-08] MEDS ORDERED: HYDR-3895 PO (14:48)
[2018-03-08] MEDS ORDERED: DIPH50CA37 PO (14:48)
[2018-03-08] MEDS ORDERED: CLON0.1T14 PO (14:48)
[2018-03-08 16:00] VITALS: BP 131/86
--- NOTE | 2018-03-08 16:00 | NUR ---
CIWA ASSESSMENT CIWA-8, patient reported feeling anxious, agitated, restless, fatigue, anhedonia, dysphoria. Encourage patient to use non pharmacological intervention, patient continues on 1:1 for safety. All safety measures in place.
--- NOTE | 2018-03-08 19:01 | NUR ---
END OF SHIFT NOTE Gave report to night nurse, 58 year old female admitted for ETOH withdrawal. Patient completed her Ativan taper tolerated well. Patient presented with blunt facial expression, anxiety, agitation, restless, light headed, diaphoresis, bilateral hand tremors. Patient was given scheduled medications. Patient's magnesium level was low which was replaced it with 800mg mag-ox as ordered, patient tolerated well. Patient noted attending groups activities and gait is steady still on 1:1 for for safety. Patient denies any SI/HI. Vital signs WNL. Patient scheduled for discharge in AM. Encourage PO fluids as tolerated. Last CIWA score was-8 . All safety measures in place, call light within reach. Patient endorse to night nurse in stable condition.
[2018-03-08 20:00] VITALS: BP 112/70
--- NOTE | 2018-03-08 20:00 | NUR ---
CIWA Assessment Patient is presenting with s/s of withdrawal: anxiety, agitation, sweats and chills. Patients CIWA =8. Respirations are even and unlabored. Will continue to monitor.
--- NOTE | 2018-03-08 20:00 | NUR ---
Start of shift Patient is a 58 year old female admitted on 03/02/2018. Patient is here at [facility] for medically supervision of Alcohol withdrawal. Patient was on a 5 day Ativan taper. Patient last CIWA was 8. Patient is set for discharge tomorrow 03/09/2018. Per endorsement patient did not have any PRN medications. Patient is on fall and seizure precautions and has a 1:1 sitter. Upon rounds patient was noted in med watching tv. Patient verbalized understanding of plan of care. Patient asked for PRN Benadryl for sleep. Patient was noted withdrawn, tense, and depressed. Respirations are even and unlabored. Patient denies any pain. Safety measures in place, bed locked in low position, side rails up x2, and call light within reach. Will continue to monitor.
[2018-03-08] MEDS: diphenhydrAMINE 50 MG CAPSULE PO PRN (21:37)
--- NOTE | 2018-03-08 21:38 | NUR ---
PRN Benadryl 50 mg Patient presented with difficulty sleeping and was requesting for PRN Benadryl 50 mg. Medication was administered and was tolerated well. Respirations were even and unlabored. Safety measures in place, bed locked in low position, side rails up x2, and call light within reach. Will continue to monitor.
--- NOTE | 2018-03-08 22:38 | NUR ---
PRN Benadryl Reassessment Patient was noted in bed lying with eyes closed. Patient was breathing even and unlabored. Medication was noted to be effective. Safety measures in place, bed locked in low position, side rails up x2, and call light within reach. Will continue to monitor.
[2018-03-09] VITALS: BP 106/75
--- NOTE | 2018-03-09 | NUR ---
CIWA Deferred Patient was noted in bed resting with eyes closed, breathing even and unlabored. Per protocol CIWA is to be assessed while awake. Safety measures in place, bed locked in low position, side rails up x2, and call light within reach. Will continue to monitor.
[2018-03-09 04:00] VITALS: BP 102/79
--- NOTE | 2018-03-09 04:00 | NUR ---
CIWA Deferred Patient was noted in bed resting with eyes closed, breathing even and unlabored. Per protocol CIWA is to be assessed while awake. Safety measures in place. Will continue to monitor.
[2018-03-09] MEDS: PANTOPRAZOLE SODIUM 40 MG TABLET.DR PO SCH (06:57)
--- NOTE | 2018-03-09 07:29 | NUR ---
End of shift Patient is a 58 year old female admitted on 03/02/2018. Patient is here at [facility] for medically supervision of Alcohol withdrawal. Patient was on a 5 day Ativan taper. Patient last CIWA was 8. Patient is set for discharge today 03/09/2018. Patient had PRN Benadryl medication at 2138. Patient is on fall and seizure precautions and has a 1:1 sitter. Patient slept for 8 hours. Patients total intake was 1259 ml and voided x3 and had no bowel movements. Patient was compliant with plan of care. Respirations are even and unlabored. Safety measures in place, bed locked in low position, side rails up x2, and call light within reach. Will endorse to day shift
--- NOTE | 2018-03-09 07:30 | NUR ---
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 Pt endorses NKA, full code and regular diet. Endorses PMH of sporadic seizures unrelated to ETOH, per pt. PPH of anxiety and depression. Pt has completed an Ativan taper and is scheduled to discharge today with last CIWA 8, per NOC report. Pt was administered PRN Benadryl(Insomnia) on NOC, per report. Glove Cutter encounters pt in pts room with pt resting. Pt is A/O x4 and makes needs known. Pt with linear thought process and clear speech pattern. Pt is calm and cooperative with a flat affect and congruent mood. Pt denies any signs or symptoms of withdrawals. Denies anxiety related to transition into treatment. Bed in low position with wheels locked and side rails up x2. Will continue to monitor, support and encourage according to plan of care.
[2018-03-09 08:00] VITALS: BP 100/72
--- NOTE | 2018-03-09 08:00 | NUR ---
CIWA 3 Pt denies any signs or symptoms or withdrawals. Pt is anxious. Will continue to monitor, support and encourage according to plan of care.
--- NOTE | 2018-03-09 08:13 | NUR ---
Nursing Note Okay to remove 1:1 sitter. Pt ambulates with a steady gait. She denies any dizziness, lightheadedness, or pain.
[2018-03-09] MEDS: PAROXETINE HCL 10 MG TABLET PO SCH (09:03)
[2018-03-09] MEDS: THIAMINE HCL 100 MG TABLET PO SCH (09:03)
[2018-03-09] MEDS: FOLIC ACID 1 MG TABLET PO SCH (09:03)
[2018-03-09] MEDS: MULTIVITAMINS,THERAPEUTIC TABLET PO SCH (09:03)
--- NOTE | 2018-03-09 09:33 | NUR ---
Discharge Assessment Pt is A/O x4 and makes her needs known. Linear thought process and clear speech patter. Flat affect with congruent mood. Pt denies any signs and symptoms of withdrawal, pt is noted to be mildly anxious. Pt has been to treatment previously and states she is not anxious about the transition. Pt is calm and cooperative. Denies SI/HI or A/VH. Print Shop Chief Clerk educated pt on discharge medication including time, name, route, dose and indication of all prescribed medications. Prescriptions included in discharge packet. Print Shop Chief Clerk educated pt on importance of continued sobriety and follow-up care. Educated on discharge paperwork, including discharge educational material and MD notes and lab results. Pt denies any further comments, questions or concerns. Pt discharged facility via private transportation to her RTC.
== END 2018-03-09 09:33 | disposition other institution (70) | DRG 895 ==
LOC: SRC 12:19
PROVIDERS: ADMIT Family Medicine Addiction Medicine; ATTEND Family Medicine Addiction Medicine
PROC: HZ2ZZZZ Detoxification Services for Substance Abuse Treatment (ICD-10-PCS; principal; 2018-03-02)
PROC: HZ31ZZZ Individual Counseling for Substance Abuse Treatment, Behavioral (ICD-10-PCS; 2018-03-04)
PROC: HZ41ZZZ Group Counseling for Substance Abuse Treatment, Behavioral (ICD-10-PCS; 2018-03-04)
DX: F10.230 Alcohol dependence with withdrawal, uncomplicated (principal); F33.1 Major depressive disorder, recurrent, moderate; Y90.8 Blood alcohol level of 240 mg/100 ml or more; F41.9 Anxiety disorder, unspecified; Z79.899 Other long term (current) drug therapy; K21.9 Gastro-esophageal reflux disease without esophagitis; E83.42 Hypomagnesemia; Z90.710 Acquired absence of both cervix and uterus; S00.81XA Abrasion of other part of head, initial encounter; W19.XXXA Unspecified fall, initial encounter; Y92.89 Other specified places as the place of occurrence of the external cause; Z86.69 Personal history of other diseases of the nervous system and sense organs
CPT/HCPCS: 36415; 70030-TC; 80307; 83690; 83735; 84443; 84703; 85025; 85610; 86580; 86592; 86705; 86803; 87340; 87806; A4663; G0480; J3411; Q0162; Q0163